=== PATIENT | female | born 1980 | race Caucasian/White ===

== ENCOUNTER 2019-08-02 12:03 | Emergency (ER) | payer BC, SELFPAY ==
[2019-08-02 12:13] VITALS: BP 122/79; PULSE 83; RESP 16; TEMP 36.8; O2SAT 99
--- NOTE | 2019-08-02 12:14 | ED.GENADULT ---
HPI - General Adult General Chief complaint: Ear Stated complaint: ear ache Time Seen by Provider: 08/02/19 12:20 Source: patient and RN notes reviewed Mode of arrival: ambulatory Limitations: no limitations History of Present Illness HPI narrative: 38-year-old female presents with complains of right ear decrease hearing, pain, believes she has a sore to outer ear, and drainage (crusty) for the past 3 days. Pain increased over the past 24 hours. Ibuprofen 400mg, last at 16:00 on 08/01/19 and antibiotic ointment to outer eat without relief. Denies pressure, clogged feeling, injury, and tinnitus. Rhinorrhea and congestion. Denies itching. No facial swelling. No high fevers, sore throat, drooling, neck or throat swelling. Remains active. Denies being , LMP 07/31/19 and on control. The patient reports she have not been diagnosed with COVID-19. The patient reports she is not waiting for the results of a COVID-19 lab test. The patient reports she do not have fever, chills, weakness, fatigue, or myalgia. The patient reports she do not have a new or worsening cough or shortness of breath. Denies chest pain. The patient reports she do not have any nausea, vomiting, abdominal pain, and diarrhea. Tolerating po intake well. Denies concerns for COVID-19 or exposures been home with limited outdoor exposure except for essential household needs, work, and return home. At this time, patient is not suspected of having COVID-19. Some parts of this dictation were generated by voice recognition software and may contain typographical and/or grammatical inaccuracies. Related Data Home Medications Medication Instructions Recorded Confirmed bupropion HCl [Wellbutrin XL] 300 mg PO DAILY 08/02/19 08/02/19 buspirone 5 mg PO BID 08/02/19 08/02/19 metformin [Glucophage XR] 500 mg PO BID 08/02/19 08/02/19 norethindrone-e.estradiol-iron 1 tablet PO DAILY 08/02/19 08/02/19 [Mibelas 24 Fe] Allergies Allergy/AdvReac Type Severity Reaction Status Date / Time No Known Allergies Allergy Verified 08/02/19 12:18 Review of Systems Review of Systems: Narrative: CONSTITUTIONAL: Denies fever, chills, sweats. EYES: Denies visual changes, redness, discharge. ENT: Complains of rhinorrhea, congestion, right ear decrease hearing, RT otalgia, sore to outer ear, and drainage (crusty). Denies sore throat. CARDIOVASCULAR: Denies chest pain, palpitations, edema. RESPIRATORY: Denies dyspnea, wheezing, cough. GASTROINTESTINAL: Denies abdominal pain, nausea, vomiting, diarrhea. GENITOURINARY: Denies dysuria, hematuria, abnormal discharge. SKIN: Denies rash or itching. MUSCULOSKELETAL: Denies acute back pain, joint pain, or myalgia. NEUROLOGIC: Denies numbness or focal weakness. PSYCHIATRIC: Denies anxiety or depression. All systems reviewed & are unremarkable except as noted in HPI and below. PMFSH Past Medical History Medical History (Updated 08/02/19 @ 12:45 by RED Garcia) Anxiety delivery delivered Diabetes Surgical History Surgical History (Updated 08/02/19 @ 12:29 by RED Garcia) H/O section X2 Family History Family History Mother Family history of malignant neoplasm Family history of lymphoma Grandparent Family history of lung cancer Social History Social History (Updated 08/02/19 @ 12:30 by RED Garcia) Smoking status: Never smoker Second hand tobacco smoke exposure: No Alcohol intake: current Substance use: never Living arrangements: with family Occupation/Education: occupation Gender identity (if verbalized by the patient): Female Comments At time of signature, agree with nurse past medical, surgical, social, and family history. There is no relevant family history pertinent to the presenting complaint. Exam Narrative: Exam Narrative: GENERAL: This is a well-nourished, well-deve
== END 2019-08-02 12:37 | disposition home or self-care (01) ==
PROVIDERS: Emergency Provider Nurse Practitioner Family; PCP Family Medicine
DX: H60.331 Swimmer's ear, right ear (principal); H93.8X1 Other specified disorders of right ear; Z79.84 Long term (current) use of oral hypoglycemic drugs; F41.9 Anxiety disorder, unspecified; E11.9 Type 2 diabetes mellitus without complications
CPT/HCPCS: 99213; G0463